=== PATIENT | female | born 1990 | race African-American/Black ===

== ENCOUNTER 2022-08-27 20:16 | Emergency (ER) | payer BC, SELFPAY ==
[2022-08-27 21:57] LABS: #Basophils 0.1 10x3/uL (0.0-0.2); #Eosinphils 0.4 10x3/uL (0.0-0.5); #Monocytes 0.6 10x3/uL (0.0-1.1); #Neutrophils 3.9 10x3/uL (1.5-8.4); %Basophils 1.2 % (0.0-2.0); %Eosinophils 4.4 % (0.0-6.0); %Lymphocytes 39.3 % (18.0-47.0); %Monocytes 6.9 % (0.0-10.0); Hemoglobin 10.8 g/dL (12.0-15.5); Mean Corpuscular HGB CONC 29.5 g/dL (32.0-36.0); Mean Corpuscular Hemoglobin 21.3 pg (27.0-33.0); Mean Corpuscular Volume 72.2 fl (81.6-98.3); Mean Platelet Volume 10.3 fl (7.4-10.4); Platelet Count 295 10x3/uL (150-450); RBC Distribution Width 16.2 % (11.5-14.5); Red Blood Cell (RBC) Count 5.07 10x6/uL (3.90-5.03); White Blood Cell (WBC) Count 8.2 10x3/uL (3.5-10.5)
[2022-08-27 22:00] LABS: Anion Gap 13 mmol/L (10-20); BUN (Urea Nitrogen) 14 mg/dL (7.0-18.7); Calc. Creatinine Clearance 0 mL/min (70-130); Carbon Dioxide 26 mmol/L (22-29); Chloride 103 mmol/L (98-107); Potassium 3.1 mmol/L (3.5-5.1); Sodium 139 mmol/L (136-145)
[2022-08-27 22:01] LABS: ALT (SGPT) 8 U/L (8-55); AST (SGOT) 12 U/L (5-34); Albumin 4.2 g/dL (3.5-5.0); Alkaline Phosphatase 81 U/L (40-110); Bilirubin, Total 0.4 mg/dL (0.2-1.2); Calcium 8.9 mg/dL (7.8-10.44); Estimated GFR 95; Glucose 95 mg/dL (70-105); Protein, Total 7.2 g/dL (6.0-8.3)
[2022-08-27 22:08] LABS: Hypochromia SLIGHT = 6-15 cells (100X) (0-5/hpf)
[2022-08-27 22:09] LABS: Platelet Morphology Comment Appears Adequate
[2022-08-27 22:58] LABS: Pregnancy Test - Urine (BHCG) Negative (Negative); Pregu Control Background? CLEAR/WHITE (CLR/WHITE); Pregu Control Bar Appear? YES (CONTROL BAR); Specific Gravity 1.015 (1.002-1.036)
== END 2022-08-28 00:05 | disposition home or self-care (01) ==
LOC: CSHERS 20:16
DX: R07.89 Other chest pain (principal); I10 Essential (primary) hypertension
CPT/HCPCS: 71045; 80053; 81025; 83880; 84484; 85025; 85379; 93005

== ENCOUNTER 2023-04-14 17:01 | Inpatient (IN) | payer OTHER, SELFPAY ==
[2023-04-14] MEDS ORDERED: Lidocaine 1% w/Epinephrine 1:200K 30 ML VIAL ONE (18:14)
[2023-04-14 18:24] LABS: #Basophils 0.1 10x3/uL (0.0-0.2); #Monocytes 0.5 10x3/uL (0.0-1.1); #Neutrophils 5.6 10x3/uL (1.5-8.4); %Basophils 0.9 % (0.0-2.0); %Lymphocytes 18.9 % (18.0-47.0); %Monocytes 6.4 % (0.0-10.0); %Neutrophils 73.7 % (40.0-75.0); Hematocrit 38.6 % (34.9-44.5); Hemoglobin 11.5 g/dL (12.0-15.5); Mean Corpuscular HGB CONC 29.8 g/dL (32.0-36.0); Mean Corpuscular Volume 73.9 fl (81.6-98.3); Mean Platelet Volume 10.2 fl (7.4-10.4); Platelet Count 334 10x3/uL (150-450); RBC Distribution Width 15.1 % (11.5-14.5); Red Blood Cell (RBC) Count 5.22 10x6/uL (3.90-5.03); White Blood Cell (WBC) Count 7.6 10x3/uL (3.5-10.5)
[2023-04-14 18:35] LABS: ALT (SGPT) 7 U/L (8-55); AST (SGOT) 13 U/L (5-34); Albumin 4.1 g/dL (3.5-5.0); Alkaline Phosphatase 60 U/L (40-110); Anion Gap 14 mmol/L (10-20); BUN (Urea Nitrogen) 7 mg/dL (7.0-18.7); Bilirubin, Total 0.8 mg/dL (0.2-1.2); Calc. Creatinine Clearance 0 mL/min (70-130); Calcium 8.9 mg/dL (7.8-10.44); Carbon Dioxide 24 mmol/L (22-29); Chloride 103 mmol/L (98-107); Estimated GFR 83; Globulin 3.4 g/dL (2.4-3.5); Glucose 116 mg/dL (70-105); Potassium 2.8 mmol/L (3.5-5.1); Protein, Total 7.5 g/dL (6.0-8.3); Sodium 138 mmol/L (136-145)
[2023-04-14] MEDS ORDERED: Ondansetron PF 4 MG/2 ML Vial ONE (18:36)
[2023-04-14] MEDS ORDERED: Ketorolac Tromethamine 30 MG/ML VIAL ONE (18:37)
[2023-04-14] MEDS ORDERED: Potassium Chloride 20 MEQ TAB ONE (20:06)
[2023-04-14] MEDS ORDERED: Potassium Chloride 20 MEQ/100 ML PREMIX BAG ONE (20:06)
[2023-04-14] MEDS ORDERED: Morphine 4 MG/ML VIAL ONE (20:07)
[2023-04-14 23:07] LABS: CSF, Glucose 57 mg/dl (40-70); CSF, Protein 62 mg/dL (15-40)
[2023-04-14 23:25] LABS: Color Of CSF Supernatant COLORLESS (Colorless); Tube # 1; Unspun CSF Color COLORLESS (Colorless)
[2023-04-15 00:02] LABS: CSF Source CSF
[2023-04-15 00:06] LABS: Clarity Clear (Clear)
[2023-04-15 00:11] LABS: CSF RBC Count - Manual 1 /cu.mm (None Seen); CSF WBC/NonHematics Count-Man 76 /cu.mm (0-5)
[2023-04-15 00:35] LABS: CSF RBC Count - Manual 0 /cu.mm (None Seen); CSF Source CSF; CSF WBC/NonHematics Count-Man 82 /cu.mm (0-5); Clarity Clear (Clear); Tube # 4
[2023-04-15] MEDS ORDERED: cefTRIAXone (ROCEPHIN) 2 GM VIAL ONE (01:20)
[2023-04-15] MEDS ORDERED: Dexamethasone 10 MG/ML VIAL ONE (01:20)
[2023-04-15 01:49] LABS: Cell Count Non Hematic 13 %; Lymphocytes 83 %
[2023-04-15 01:50] LABS: Segmented Neutrophils 4 %
[2023-04-15] MEDS ORDERED: Morphine 4 MG/ML VIAL ONE (01:56)
[2023-04-15] MEDS ORDERED: Ondansetron PF 4 MG/2 ML Vial ONE (01:56)
[2023-04-15 01:57] LABS: Cell Count Non Hematic 12 %; Lymphocytes 82 %
[2023-04-15 01:58] LABS: Segmented Neutrophils 6 %
[2023-04-15] MEDS ORDERED: Ondansetron ODT 4 MG TAB PO PRN (04:12)
[2023-04-15] MEDS ORDERED: Ondansetron PF 4 MG/2 ML Vial IVP PRN (04:12)
[2023-04-15] MEDS ORDERED: HYDROcodone/Acetaminophen 5/325 mg Tablet PO PRN (04:12)
[2023-04-15] MEDS ORDERED: Morphine 4 MG/ML VIAL SLOW IVP PRN (04:12)
[2023-04-15] MEDS ORDERED: Calcium Carbonate 500 MG ChewTAB PO PRN (04:12)
[2023-04-15] MEDS ORDERED: D5 1/2 NS w/20 mEq KCL 1,000 ML ONE (04:48)
[2023-04-15] MEDS: D5 1/2 NS w/20 mEq KCL 1,000 ML IV SCH ×2 (04:49→11:37)
[2023-04-15 05:01] LABS: Anion Gap 13 mmol/L (10-20); BUN (Urea Nitrogen) 6 mg/dL (7.0-18.7); Calc. Creatinine Clearance 0 mL/min (70-130); Calcium 8.8 mg/dL (7.8-10.44); Carbon Dioxide 24 mmol/L (22-29); Chloride 103 mmol/L (98-107); Estimated GFR 97; Glucose 129 mg/dL (70-105); Magnesium 1.7 mg/dL (1.6-2.6); Potassium 3.2 mmol/L (3.5-5.1); Sodium 137 mmol/L (136-145)
[2023-04-15] MEDS ORDERED: Potassium Chloride 20 MEQ TAB PO SCH ×2 (07:00→12:00)
[2023-04-15 08:20] VITALS: BMI 38.2
[2023-04-15] MEDS: Magnesium Oxide 400 MG TAB PO SCH (08:42)
[2023-04-15] MEDS ORDERED: FLU VACC QS2023-24(6MOS UP)/PF 60 MCG/0.5 ML SYRINGE IM ONE (09:00)
[2023-04-15] MEDS: Acetaminophen 325 MG TAB PO PRN ×2 (09:00→15:47)
[2023-04-15] MEDS ORDERED: Electrolyte Replacement Protocol 1 EACH FS SCH (10:00)
[2023-04-15 10:25] LABS: BHCG - Serum Negative (NEGATIVE); Pregs Control Background? CLEAR/WHITE (CLR/WHITE); Pregs Control Bar Appear? YES (CONTROL BAR)
[2023-04-15] MEDS ORDERED: Magnevist 469MG/ML 20 ML VIAL ONE ×2 (10:35)
[2023-04-15] MEDS ORDERED: Magnesium 2 GM/50 ML(in water) 2 GM in Premix 1 BAG IVPB SCH (10:45)
[2023-04-15] MEDS ORDERED: Amlodipine 5 MG TAB PO SCH (12:45)
[2023-04-15] MEDS ORDERED: cefTRIAXone\\ROCEPHIN 2 GM in Sodium Chloride 0.9% 100 ML IVPB SCH (13:30)
[2023-04-15 16:44] LABS: Bilirubin Neg (Negative); Blood, Urine 250 (Negative); Clarity Slightly Cloudy (Clear); Glucose, Urine (Dipstick) Normal (Negative); Ketone, Urine Negative (Negative); Leukocyte Negative (Negative); Nitrite Negative (Negative); Protein, Urine (Dipstick) 30 mg/dl (Neg-Trace); Specific Gravity, Urine 1.015 (1.005-1.030); Urobilinogen Normal mg/dL (Less than 2)
[2023-04-15 17:06] LABS: Bacteria/HPF Rare-Few HPF (None Seen); CAUTI Indications for Culture Fever or rigors; Mucous/LPF Rare LPF (<2+); RBC/HPF 21-50 HPF (0-3); WBC/HPF 0-3 HPF (0-3)
[2023-04-15 17:07] LABS: Urine Culture Reflex No No
[2023-04-16 01:02] LABS: SARS-CoV-2 NAA Rapid Test Not Detected (NotDetected)
[2023-04-16 05:55] LABS: #Monocytes 0.7 10x3/uL (0.0-1.1); #Neutrophils 6.2 10x3/uL (1.5-8.4); %Basophils 0.3 % (0.0-2.0); %Lymphocytes 22.9 % (18.0-47.0); %Monocytes 7.9 % (0.0-10.0); %Neutrophils 68.6 % (40.0-75.0); Hematocrit 35.4 % (34.9-44.5); Hemoglobin 10.9 g/dL (12.0-15.5); Mean Corpuscular HGB CONC 30.8 g/dL (32.0-36.0); Mean Corpuscular Hemoglobin 22.5 pg (27.0-33.0); Mean Platelet Volume 9.8 fl (7.4-10.4); Platelet Count 284 10x3/uL (150-450); RBC Distribution Width 15.2 % (11.5-14.5); Red Blood Cell (RBC) Count 4.85 10x6/uL (3.90-5.03)
[2023-04-16 06:18] LABS: ALT (SGPT) 7 U/L (8-55); AST (SGOT) 10 U/L (5-34); Albumin 3.8 g/dL (3.5-5.0); Alkaline Phosphatase 50 U/L (40-110); Anion Gap 13 mmol/L (10-20); BUN (Urea Nitrogen) 10 mg/dL (7.0-18.7); Bilirubin, Direct 0.3 mg/dL (0.1-0.3); Bilirubin, Total 0.7 mg/dL (0.2-1.2); Calc. Creatinine Clearance 191 mL/min (70-130); Calcium 8.9 mg/dL (7.8-10.44); Carbon Dioxide 25 mmol/L (22-29); Chloride 105 mmol/L (98-107); Estimated GFR 100; Glucose 119 mg/dL (70-105); Magnesium 2.1 mg/dL (1.6-2.6); Potassium 3.4 mmol/L (3.5-5.1); Sodium 140 mmol/L (136-145)
[2023-04-16 06:26] LABS: Hypochromia SLIGHT = 6-15 cells (100X) (0-5/hpf); Microcytosis SLIGHT = 6-15 cells (100X) (0-5/hpf); Platelet Adequacy Comment Appears Adequate
[2023-04-16] MEDS ORDERED: Potassium Chloride 20 MEQ TAB PO SCH (08:00)
[2023-04-16] MEDS: Amlodipine 5 MG TAB PO SCH (08:59)
[2023-04-16] MEDS: Magnesium Oxide 400 MG TAB PO SCH (09:00)
[2023-04-17 06:51] LABS: #Basophils 0.1 10x3/uL (0.0-0.2); #Monocytes 0.4 10x3/uL (0.0-1.1); %Basophils 1.1 % (0.0-2.0); %Eosinophils 0.4 % (0.0-6.0); %Lymphocytes 48.6 % (18.0-47.0); %Monocytes 6.3 % (0.0-10.0); %Neutrophils 43.5 % (40.0-75.0); Hematocrit 36.4 % (34.9-44.5); Hemoglobin 11.1 g/dL (12.0-15.5); Mean Corpuscular HGB CONC 30.5 g/dL (32.0-36.0); Mean Corpuscular Hemoglobin 22.7 pg (27.0-33.0); Mean Corpuscular Volume 74.3 fl (81.6-98.3); Mean Platelet Volume 10.8 fl (7.4-10.4); Platelet Count 265 10x3/uL (150-450); RBC Distribution Width 15.2 % (11.5-14.5)
[2023-04-17 07:35] LABS: Anion Gap 13 mmol/L (10-20); BUN (Urea Nitrogen) 12 mg/dL (7.0-18.7); Calc. Creatinine Clearance 189 mL/min (70-130); Calcium 8.5 mg/dL (7.8-10.44); Carbon Dioxide 26 mmol/L (22-29); Chloride 104 mmol/L (98-107); Estimated GFR 98; Glucose 98 mg/dL (70-105); Magnesium 1.8 mg/dL (1.6-2.6); Potassium 3.2 mmol/L (3.5-5.1); Sodium 140 mmol/L (136-145)
[2023-04-17] MEDS: Amlodipine 5 MG TAB PO SCH (08:28)
[2023-04-17] MEDS: Magnesium Oxide 400 MG TAB PO SCH (08:28)
[2023-04-17] MEDS ORDERED: valACYclovir 500 MG TAB PO SCH (09:00)
[2023-04-17] MEDS ORDERED: Potassium Chloride 20 MEQ TAB PO SCH (09:00)
[2023-04-17] MEDS ORDERED: Magnesium 2 GM/50 ML(in water) 2 GM in Premix 1 BAG IVPB SCH (09:00)
[2023-04-17 09:41] VITALS: BP 144/97; TEMP 98.1
[2023-04-17 13:14] LABS: West Nile Virus IgG Ab - CSF Positive (Negative); West Nile Virus IgM Ab - CSF Negative (Negative)
== END 2023-04-17 11:15 | disposition home or self-care (01) | DRG 75 ==
LOC: CSHERS 17:01 → CSHERHOLD 04-15 01:43 → CSHTELE 04-15 08:18
PROVIDERS: ADMIT Family Medicine; ATTEND Family Medicine
PROC: 009U3ZX Drainage of Spinal Canal, Percutaneous Approach, Diagnostic (ICD-10-PCS; principal; 2023-04-14)
PROC: B01B1ZZ Fluoroscopy of Spinal Cord using Low Osmolar Contrast (ICD-10-PCS; 2023-04-14)
DX: B00.3 Herpesviral meningitis (principal); G93.5 Compression of brain; I47.10 Supraventricular tachycardia, unspecified; I10 Essential (primary) hypertension; R19.7 Diarrhea, unspecified; F10.90 Alcohol use, unspecified, uncomplicated; E87.6 Hypokalemia; E66.9 Obesity, unspecified; M43.6 Torticollis; Z68.38 Body mass index [BMI] 38.0-38.9, adult; Z79.899 Other long term (current) drug therapy; Z98.891 History of uterine scar from previous surgery; Z83.3 Family history of diabetes mellitus; Z11.52 Encounter for screening for COVID-19
CPT/HCPCS: 0241U; 36415; 62270; 70553; 72156; 80048; 80076; 81001; 82945; 83735; 84157; 84703; 85025; 85060; 86788; 86789; 87040; 87070; 87205; 87529; 87633; 87798; 87899; 89051; 96365; 96366; 96367; 96375; 96376; A9579; J0696; J1100; J1650; J1885; J2270; J2405; J3475; J3480

== ENCOUNTER 2023-09-16 23:30 | Emergency (ER) | payer OTHER, SELFPAY ==
[2023-09-16] MEDS ORDERED: Ibuprofen 200 MG TAB ONE (23:53)
[2023-09-16] MEDS ORDERED: Acetaminophen 500 MG TAB ONE (23:54)
[2023-09-17] MEDS ORDERED: Azithromycin 250 MG TAB ONE (00:54)
[2023-09-17 00:59] LABS: Influenza A by NAA Not Detected (NotDetected); Influenza B by NAA Not Detected (NotDetected); SARS-CoV-2 NAA Rapid Test Not Detected (NotDetected)
[2023-09-17] MEDS ORDERED: AMOXicillin 250 MG CAP PO SCH (01:00)
== END 2023-09-17 01:09 | disposition home or self-care (01) ==
LOC: CSHERS 23:30
DX: J18.9 Pneumonia, unspecified organism (principal); I10 Essential (primary) hypertension
CPT/HCPCS: 71046